=== PATIENT | female | born 1970 | race African-American/Black ===

== ENCOUNTER 2017-01-24 12:06 | Inpatient (IN) | payer OTHER ==
[2017-01-24 12:58] VITALS: BMI 28.0
--- NOTE | 2017-01-24 13:10 | HP ---
Admission [facility] - [facility] Chief Complaint: REHAB TX FOR DRUGS DEPENDENCE Allergies/Adverse Reactions: Allergies Allergy/AdvReac Type Severity Reaction Status Date / Time No Known Allergies Allergy Verified 01/24/17 16:06 History of Present Illness: 47 Y/O AA/FEMALE WITH A HX OF COCAINE AND HEROIN DEPENDENCE AND ON MMTP SEEKING REHAB TX. Exam Limitations: No Limitations - Ebola screening Have you traveled outside of the country in the last 21 days: No Have you had contact with anyone from an Ebola affected area: No Have you been sick,other than usual withdrawal symptoms: No Do you have a fever: No - Review of Systems Constitutional: Chills, Night Sweats, Changes in sleep EENT: reports: Tearing, Nose Congestion Respiratory: reports: No Symptoms reported Cardiac: reports: Lightheadedness GI: reports: Constipated, Diarrhea : reports: No Symptoms Reported Musculoskeletal: reports: Back Pain, Joint Pain, Muscle Pain Integumentary: reports: No Symptoms Reported Neuro: reports: Headache, Tremors, Dizziness Endocrine: reports: No Symptoms Reported Hematology: reports: Anemia Psychiatric: reports: Orientated x3, Anxious, Depressed Other Systems: Reviewed and Negative Patient History - Patient Medical History Hx Anemia: Yes (IRON SUPPLEMENT IN THE PAST) Hx Asthma: No Hx Chronic Obstructive Pulmonary Disease (COPD): No Hx Cardiac Disorders: No Hx Hypertension: Yes (ON MED) Hx Hypercholesterolemia: Yes (ON MED) HX Cerebrovascular Accident: Yes (IN 07/2015- SLIGHT RESIDUAL DEFICIT RIGHT SIDE) Hx Seizures: No Hx Diabetes: No Hx Gastrointestinal Disorders: No Hx Genitourinary Disorders: No Hx Sexually Transmitted Disorders: No Hx Renal Disease (ESRD): No Hx Thyroid Disease: No Hx Human Immunodeficiency Virus (HIV): No (NEGATIVE HX) Hx Hepatitis C: Yes (IN REMISSSION) Hx Depression: Yes (ON MEDS) Hx Suicide Attempt: No (DENIES) Hx Bipolar Disorder: No Hx Schizophrenia: No - Patient Surgical History Past Surgical History: No Hx Neurologic Surgery: No Hx Cataract Extraction: No Hx Cardiac Surgery: No Hx Lung Surgery: No Hx Breast Surgery: No Hx Breast Biopsy: No Hx Abdominal Surgery: No Hx Appendectomy: No Hx Cholecystectomy: No Hx Genitourinary Surgery: No Hx Section: No Hx Orthopedic Surgery: No Hx Hysterectomy: No Anesthesia Reaction: No - PPD History Previous Implant?: Yes Documented Results: Negative w/o proof Implanted On Prior [facility] Admission?: No PPD to be Administered?: Yes - Reproductive History Patient is a Female of Child Bearing Age (11 -55 yrs old): Yes Last Menstrual Period: 12/10/16 Patient : No - Smoking Cessation Smoking history: Current every day smoker Have you smoked in the past 12 months: Yes Aproximately how many cigarettes per day: 7 Hx Chewing Tobacco Use: No Initiated information on smoking cessation: Yes 'Breaking Loose' booklet given: 01/24/17 - Substance & Tx. History Hx Alcohol Use: Yes (VODKA) Hx Substance Use: Yes (COCAINE) Substance Use Type: Alcohol, Cocaine, Heroin Hx Substance Use Treatment: Yes (LAST TX AT [facility] 2016) - Substances Abused Alcohol Route: Oral Frequency: 1-2 times per week Amount used: 3 NIPS Age of first use: 24 Date of Last Use: 01/23/17 Cocaine Route: Smoking Frequency: 3-6 times per week (3X/WEEK) Amount used: $25 Age of first use: 24 Date of Last Use: 01/23/17 Heroin Route: Inhalation Frequency: Daily Amount used: 3 BAGS Age of first use: 24 Date of Last Use: 01/23/17 Family Disease History - Family Disease History Family Disease History: Other: Father (ADDICTION-), Mother (ALCOHOLISM- ) Admission Physical Exam [facility] - Vital Signs Vital Signs: Vital Signs - 24 hr 01/24/17 12:54 Temperature 97.1 F L Pulse Rate 60 Respiratory 20 Rate Blood Pressure 118/76 - Physical General Appearance: Yes: Irritable, Anxious, Other (SLIGHTLY DROWSY) HEENTM: Yes: EOMI, Normocephalic, ASHISH, Pharynx Normal Respiratory: Yes: Chest Non-Tender, Lungs Clear, Normal Breath Sounds, No Respiratory Distress Neck: Yes: No masses,lesions,Nodules, Supple, Trachea in good position Breast: Yes: Breast Exam Deferred Cardiology: Yes: Regular Rhythm, Regular Rate, S1, S2 Abdominal: Yes: Normal Bowel Sounds, Non Tender, Soft Genitourinary: Yes: Other (N/C) Back: Yes: Within Normal Limits Musculoskeletal: Yes: full range of Motion, Gait Steady Extremities: Yes: Normal Range of Motion, Non-Tender 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: 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: 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 NML intact, Fully Oriented, Alert Integumentary: Yes: Dry, Warm Lymphatic: Yes: Within Normal Limits - Diagnostic (1) Heroin dependence Current Visit: Yes Status: Chronic (2) Methadone maintenance therapy patient Current Visit: Yes Status: Chronic (3) History of anemia Current Visit: Yes Status: Suspected (4) Hypertension Current Visit: Yes Status: Chronic Qualifiers: Hypertension type: essential hypertension Qualified Code(s): I10 - Essential (primary) hypertension (5) History of CVA (cerebrovascular accident) without residual deficits Current Visit: Yes Status: Chronic Cleared for Admission [facility] - Detox or Rehab Claeared for Rehab Admission: Yes [facility] Breath Alcohol Content Breath Alcohol Content: 0 Urine Pregancy Test - Result Urine Test Results: Negative- NO Line Present Urine Drug Screen - Results Drug Screen Negative: No Urine Drug Screen Results: PAVITHRA-Cocaine, OPI-Opiates, MTD-Methadone
[2017-01-24] MEDS ORDERED: ACETAMINOPHEN 325 MG TABLET (FP) PO PRN (13:36)
[2017-01-24] MEDS ORDERED: guaiFENesin/D-METHORPHAN HB 10 ML UNIT-DOSE CUPS PO PRN (13:36)
[2017-01-24] MEDS ORDERED: LOPERAMIDE HCL 2 MG CAPSULE PO PRN (13:36)
[2017-01-24] MEDS ORDERED: MAGNESIUM CITRATE 300 ML BOTTLE PO PRN (13:36)
[2017-01-24] MEDS ORDERED: MAGNESIUM HYDROX 2400MG/30ML ORAL SUSPENSION 30 ML CUP PO PRN (13:36)
[2017-01-24] MEDS ORDERED: P-EPHED 60MG/TRIPROLIDI 2.5MG TABLET PO PRN (13:36)
[2017-01-24] MEDS ORDERED: diphenhydrAMINE HCL 50 MG CAPSULE PO PRN (13:36)
[2017-01-24] MEDS ORDERED: IBUPROFEN 400 MG TABLET (FP) PO PRN (13:36)
[2017-01-24] MEDS ORDERED: MENTHOL/PHENOL 1 EACH UD MM PRN (13:36)
[2017-01-24] MEDS ORDERED: MAG HYDROX/AL HYDROX/SIMETH 30 ML UNIT-DOSE CUP PO PRN (13:36)
--- NOTE | 2017-01-24 16:19 | PN ---
[facility]J Progress Note Note: received nurse reports that home medications had been reconciled patient has her own medications bought in with her. continue rehab
[2017-01-24] MEDS ORDERED: TUBERCULIN PPD 5 TU/0.1ML VIAL ID ONE (20:02)
[2017-01-24 20:35] LABS: MCH 31.7 pg (25.7-33.7); MCHC 33.6 g/dl (32.0-36.0); MEAN CELL VOLUME 94.3 fl (80-96); MEAN PLT VOLUME 10.3 fl (7.5-11.1); PLATELET COUNT 221 K/MM3 (134-434); RDW 13.6 % (11.6-15.6); WHITE BLOOD COUNT 6.7 K/mm3 (4.0-10.0)
[2017-01-24 20:44] LABS: ALBUMIN 4.2 g/dl (3.4-5.0); ANION GAP 6 (8-16); BILIRUBIN,TOTAL 0.4 mg/dL (0.2-1.0); CO2 30 mmol/L (21-32); CREATININE 0.7 mg/dL (0.55-1.02); GLUCOSE,RANDOM 79 mg/dL (74-106); SGOT/AST 36 U/L (15-37); SGPT/ALT 38 U/L (12-78)
[2017-01-24 20:45] LABS: ALK PHOS 123 U/L (45-117); TOT PROT 7.8 g/dl (6.4-8.2)
[2017-01-24 20:48] LABS: SICKLE CELL SCREEN NEGATIVE (NEGATIVE)
[2017-01-24 21:33] LABS: URINE APPEARANCE SL CLOUDY; URINE BILIRUBIN NEGATIVE (NEGATIVE); URINE BLOOD NEGATIVE (NEGATIVE); URINE COLOR LT. YELLOW; URINE GLUCOSE (UA) NEGATIVE (NEGATIVE); URINE KETONE NEGATIVE (NEGATIVE); URINE LEUK ESTERASE NEGATIVE (NEGATIVE); URINE NITRITE NEGATIVE (NEGATIVE); URINE PROTEIN NEGATIVE (NEGATIVE)
[2017-01-24] MEDS: THIAMINE HCL 100 MG TABLET (FP) PO SCH (22:06)
[2017-01-24] MEDS: NICOTINE 14 MG/24 HOURS TOPICAL PATCH TD SCH (22:22)
[2017-01-24] MEDS: ATORVASTATIN CALCIUM PO SCH (22:22)
[2017-01-25] MEDS ORDERED: METHADONE HCL 40 MG DISPERSABLE TABLET PO SCH (08:00)
[2017-01-25] MEDS ORDERED: METHADONE HCL 10 MG TABLET ONE (08:38)
[2017-01-25] MEDS ORDERED: METHADONE HCL 40 MG DISPERSABLE TABLET ONE (08:39)
[2017-01-25] MEDS: METHADONE 80 MG, METHADONE 20 MG PO SCH (08:41)
[2017-01-25] MEDS: NICOTINE 14 MG/24 HOURS TOPICAL PATCH TD SCH (10:22)
[2017-01-25] MEDS: PRENATAL VITAMINS W/ FOLIC ACID TABLET (FP) PO SCH (10:22)
[2017-01-25] MEDS: PATIENT'S OWN MEDICATION (NON-FORMULARY) (Amlodipine Besylate [Norvasc -] 10 MG) PO SCH (10:22)
[2017-01-25 11:38] LABS: HIV 1 & 2 AB NEGATIVE; HIV 1 AGp24 NEGATIVE
[2017-01-25] MEDS ORDERED: PNEUMOC 13-VAL CONJ-DIP CRM/PF 0.5 ML DISP.SYRIN IM ONE (12:00)
[2017-01-25] MEDS ORDERED: PNEUMOCOCCAL 23 VACCINE 0.5 ML VIAL IM ONE (12:00)
--- NOTE | 2017-01-25 12:51 | EKG ---
Test Reason : Blood Pressure : / mmHG Vent. Rate : 059 BPM Atrial Rate : 059 BPM P-R Int : 190 ms QRS Dur : 084 ms QT Int : 480 ms P-R-T Axes : 072 038 -20 degrees QTc Int : 475 ms SINUS BRADYCARDIA NONSPECIFIC ST AND T WAVE ABNORMALITY PROLONGED QT ABNORMAL ECG NO PREVIOUS ECGS AVAILABLE REPEAT EKG IF CLINICALLY INDICATED Confirmed by PARVIN HUERTA MD ([id number]) on 01/25/2017 12:51:19 PM Referred By: Confirmed By:PARVIN HUERTA MD
--- NOTE | 2017-01-25 12:53 | EKG ---
Test Reason : Blood Pressure : / mmHG Vent. Rate : 062 BPM Atrial Rate : 062 BPM P-R Int : 164 ms QRS Dur : 068 ms QT Int : 432 ms P-R-T Axes : 076 020 -26 degrees QTc Int : 438 ms NORMAL SINUS RHYTHM POSSIBLE LEFT ATRIAL ENLARGEMENT NONSPECIFIC T WAVE ABNORMALITY ABNORMAL ECG WHEN COMPARED WITH ECG OF 24-JAN-2017 20:52, NO SIGNIFICANT CHANGE WAS FOUND Confirmed by PARVIN HUERTA MD ([id number]) on 01/25/2017 12:53:37 PM Referred By: Confirmed By:PARVIN HUERTA MD
[2017-01-25] MEDS: THIAMINE HCL 100 MG TABLET (FP) PO SCH (22:01)
[2017-01-25] MEDS: ATORVASTATIN CALCIUM PO SCH (22:01)
[2017-01-26] MEDS ORDERED: METHADONE HCL 40 MG DISPERSABLE TABLET ONE (05:37)
[2017-01-26] MEDS ORDERED: METHADONE HCL 10 MG TABLET ONE (05:37)
[2017-01-26] MEDS: METHADONE 80 MG, METHADONE 20 MG PO SCH (07:05)
[2017-01-26] MEDS: PRENATAL VITAMINS W/ FOLIC ACID TABLET (FP) PO SCH (10:24)
[2017-01-26] MEDS: NICOTINE 14 MG/24 HOURS TOPICAL PATCH TD SCH (10:24)
[2017-01-26] MEDS: PATIENT'S OWN MEDICATION (NON-FORMULARY) (Amlodipine Besylate [Norvasc -] 10 MG) PO SCH (10:26)
[2017-01-26] MEDS: ATORVASTATIN CALCIUM PO SCH (21:41)
[2017-01-26] MEDS: THIAMINE HCL 100 MG TABLET (FP) PO SCH (21:42)
[2017-01-27] MEDS ORDERED: METHADONE HCL 10 MG TABLET ONE (03:27)
[2017-01-27] MEDS ORDERED: METHADONE HCL 40 MG DISPERSABLE TABLET ONE (03:28)
[2017-01-27] MEDS: METHADONE 80 MG, METHADONE 20 MG PO SCH (06:34)
[2017-01-27] MEDS: PATIENT'S OWN MEDICATION (NON-FORMULARY) (Amlodipine Besylate [Norvasc -] 10 MG) PO SCH (10:21)
[2017-01-27] MEDS: NICOTINE 14 MG/24 HOURS TOPICAL PATCH TD SCH (10:21)
[2017-01-27] MEDS: PRENATAL VITAMINS W/ FOLIC ACID TABLET (FP) PO SCH (10:21)
--- NOTE | 2017-01-27 10:57 | HP ---
Psychiatrist Admission - Data Date of interview: 01/27/17 Admission source: [facility] Identifying data: this is the first admission to [address] [place] [address] this 47 years old single AA mother of 2 (28 and 27 yo)female, resides in detention,supported by PA. Medical History: Significant for HTN,Anemia,Hyperlipidemia,Hep C. Vital Signs: Vital Signs - 24 hr 01/27/17 01/27/17 01/27/17 00:30 03:30 06:57 Temperature 98.3 F Pulse Rate 66 Respiratory 18 18 18 Rate Blood Pressure 107/70 01/27/17 09:18 Temperature 97.8 F Pulse Rate 56 L Respiratory 18 Rate Blood Pressure 102/64 Allergies/Adverse Reactions: Allergies Allergy/AdvReac Type Severity Reaction Status Date / Time No Known Allergies Allergy Verified 01/24/17 16:06 Date of last physical exam: 01/24/17 Concur with the findings of this exam: Yes - Substance Abuse/Tx History Hx Alcohol Use: Yes (reports drinking since 22 yo,1-2 drinks a week) Hx Substance Use: Yes (cocaine since 24 yo,$25 daily,heroin since 24 yo(inhaling ),3 bags daily) Substance Use Type: Alcohol, Cocaine, Heroin Hx Substance Use Treatment: Yes ([facility] in 2017) - Admission Criteria Previous failed treatment: Yes Poor recovery environment: Yes Comorbidities: Yes Lacks judgement: Yes Mental Status Exam - Mental Status Exam Alert and Oriented to: Time, Place, Person Cognitive Function: Grossly Intact Patient Appearance: Well Groomed Mood: Euthymic Affect: Appropriate, Mood Congruent Patient Behavior: Cooperative Speech Pattern: Clear Voice Loudness: Normal Thought Process: Goal Oriented Thought Disorder: Not Present Hallucinations: Denies Suicidal Ideation: Denies Homicidal Ideation: Denies Insight/Judgement: Fair Sleep: Fair Appetite: Good Muscle strength/Tone: Normal Gait/Station: Normal Psychiatric Findings - Problem List ([place] 1, 2,3) (1) Heroin dependence Current Visit: Yes Status: Chronic (2) Methadone maintenance therapy patient Current Visit: Yes Status: Chronic (3) Alcohol dependence Current Visit: Yes Status: Chronic (4) Cocaine abuse Current Visit: Yes Status: Chronic - Initial Treatment Plan Initial Treatment Plan: Will monitor progress.
[2017-01-27] MEDS: THIAMINE HCL 100 MG TABLET (FP) PO SCH (21:47)
[2017-01-27] MEDS: ATORVASTATIN CALCIUM PO SCH (21:47)
[2017-01-28] MEDS ORDERED: METHADONE HCL 10 MG TABLET ONE (03:19)
[2017-01-28] MEDS ORDERED: METHADONE HCL 40 MG DISPERSABLE TABLET ONE (03:19)
[2017-01-28] MEDS: METHADONE 80 MG, METHADONE 20 MG PO SCH (06:19)
[2017-01-28] MEDS ORDERED: PT OWN MED DRAWER 7, Y5N ONE (09:12)
[2017-01-28] MEDS: PATIENT'S OWN MEDICATION (NON-FORMULARY) (Amlodipine Besylate [Norvasc -] 10 MG) PO SCH (10:38)
[2017-01-28] MEDS: NICOTINE 14 MG/24 HOURS TOPICAL PATCH TD SCH (10:38)
[2017-01-28] MEDS: PRENATAL VITAMINS W/ FOLIC ACID TABLET (FP) PO SCH (10:38)
[2017-01-28] MEDS ORDERED: METHADONE HCL 40 MG DISPERSABLE TABLET PO SCH (11:09)
[2017-01-28] MEDS ORDERED: METHADONE 80 MG, METHADONE 10 MG PO ONE (11:30)
[2017-01-28] MEDS: ATORVASTATIN CALCIUM PO SCH (21:39)
[2017-01-28] MEDS: THIAMINE HCL 100 MG TABLET (FP) PO SCH (21:39)
[2017-01-29] MEDS ORDERED: METHADONE HCL 40 MG DISPERSABLE TABLET ONE (06:32)
[2017-01-29] MEDS ORDERED: METHADONE HCL 10 MG TABLET ONE (06:32)
[2017-01-29] MEDS: METHADONE 80 MG, METHADONE 10 MG PO SCH (06:33)
[2017-01-29] MEDS: PRENATAL VITAMINS W/ FOLIC ACID TABLET (FP) PO SCH (10:32)
[2017-01-29] MEDS: PATIENT'S OWN MEDICATION (NON-FORMULARY) (Amlodipine Besylate [Norvasc -] 10 MG) PO SCH (10:32)
[2017-01-29] MEDS: NICOTINE 14 MG/24 HOURS TOPICAL PATCH TD SCH (10:32)
[2017-01-29] MEDS: TOLNAFTATE 1% CREAM 15 GM TUBE TP SCH ×2 (12:58→21:43)
[2017-01-29] MEDS: ATORVASTATIN CALCIUM PO SCH (21:42)
[2017-01-29] MEDS: THIAMINE HCL 100 MG TABLET (FP) PO SCH (21:44)
[2017-01-30] MEDS ORDERED: METHADONE HCL 10 MG TABLET ONE (03:34)
[2017-01-30] MEDS ORDERED: METHADONE HCL 40 MG DISPERSABLE TABLET ONE (03:35)
[2017-01-30] MEDS: METHADONE 80 MG, METHADONE 10 MG PO SCH (06:31)
[2017-01-30] MEDS: PATIENT'S OWN MEDICATION (NON-FORMULARY) (Amlodipine Besylate [Norvasc -] 10 MG) PO SCH (10:08)
[2017-01-30] MEDS: PRENATAL VITAMINS W/ FOLIC ACID TABLET (FP) PO SCH (10:09)
[2017-01-30] MEDS: NICOTINE 14 MG/24 HOURS TOPICAL PATCH TD SCH (10:09)
[2017-01-30] MEDS: TOLNAFTATE 1% CREAM 15 GM TUBE TP SCH ×2 (10:10→21:31)
[2017-01-30] MEDS: ATORVASTATIN CALCIUM PO SCH (21:30)
[2017-01-30] MEDS: THIAMINE HCL 100 MG TABLET (FP) PO SCH (21:30)
[2017-01-31] MEDS ORDERED: METHADONE HCL 10 MG TABLET ONE (04:57)
[2017-01-31] MEDS ORDERED: METHADONE HCL 40 MG DISPERSABLE TABLET ONE (04:57)
[2017-01-31] MEDS: METHADONE 80 MG, METHADONE 10 MG PO SCH (06:45)
[2017-01-31] MEDS: PRENATAL VITAMINS W/ FOLIC ACID TABLET (FP) PO SCH (10:30)
[2017-01-31] MEDS: PATIENT'S OWN MEDICATION (NON-FORMULARY) (Amlodipine Besylate [Norvasc -] 10 MG) PO SCH (10:30)
[2017-01-31] MEDS: NICOTINE 14 MG/24 HOURS TOPICAL PATCH TD SCH (10:31)
[2017-01-31] MEDS: TOLNAFTATE 1% CREAM 15 GM TUBE TP SCH ×2 (10:31→21:44)
[2017-01-31] MEDS: THIAMINE HCL 100 MG TABLET (FP) PO SCH (21:44)
[2017-01-31] MEDS: ATORVASTATIN CALCIUM PO SCH (21:44)
[2017-01-31] MEDS ORDERED: PT OWN MED DRAWER 7, Y5N ONE (23:29)
[2017-02-01] MEDS ORDERED: METHADONE HCL 40 MG DISPERSABLE TABLET ONE (03:30)
[2017-02-01] MEDS ORDERED: METHADONE HCL 10 MG TABLET ONE (03:30)
[2017-02-01] MEDS: METHADONE 80 MG, METHADONE 10 MG PO SCH (06:38)
[2017-02-01] MEDS: NICOTINE 14 MG/24 HOURS TOPICAL PATCH TD SCH (09:55)
[2017-02-01] MEDS: PRENATAL VITAMINS W/ FOLIC ACID TABLET (FP) PO SCH (09:56)
[2017-02-01] MEDS: PATIENT'S OWN MEDICATION (NON-FORMULARY) (Amlodipine Besylate [Norvasc -] 10 MG) PO SCH (09:57)
[2017-02-01] MEDS: TOLNAFTATE 1% CREAM 15 GM TUBE TP SCH ×2 (09:57→21:41)
[2017-02-01] MEDS ORDERED: PT OWN MED DRAWER 7, Y5N ONE ×2 (09:57→19:43)
[2017-02-01] MEDS: ATORVASTATIN CALCIUM PO SCH (21:41)
[2017-02-01] MEDS: THIAMINE HCL 100 MG TABLET (FP) PO SCH (21:41)
[2017-02-02] MEDS ORDERED: METHADONE HCL 10 MG TABLET ONE (03:17)
[2017-02-02] MEDS ORDERED: METHADONE HCL 40 MG DISPERSABLE TABLET ONE (03:17)
[2017-02-02] MEDS: METHADONE 80 MG, METHADONE 10 MG PO SCH (06:34)
[2017-02-02] MEDS: PATIENT'S OWN MEDICATION (NON-FORMULARY) (Amlodipine Besylate [Norvasc -] 10 MG) PO SCH (10:02)
[2017-02-02] MEDS: NICOTINE 14 MG/24 HOURS TOPICAL PATCH TD SCH (10:03)
[2017-02-02] MEDS: PRENATAL VITAMINS W/ FOLIC ACID TABLET (FP) PO SCH (10:03)
[2017-02-02] MEDS: TOLNAFTATE 1% CREAM 15 GM TUBE TP SCH ×2 (10:04→21:34)
[2017-02-02] MEDS: THIAMINE HCL 100 MG TABLET (FP) PO SCH (21:34)
[2017-02-02] MEDS: ATORVASTATIN CALCIUM PO SCH (21:34)
[2017-02-02] MEDS: NICOTINE POLACRILEX 2 MG GUM BC PRN (21:36)
[2017-02-02] MEDS ORDERED: PT OWN MED DRAWER 7, Y5N ONE (21:56)
[2017-02-03] MEDS ORDERED: METHADONE HCL 10 MG TABLET ONE (03:25)
[2017-02-03] MEDS ORDERED: METHADONE HCL 40 MG DISPERSABLE TABLET ONE (03:26)
[2017-02-03] MEDS: METHADONE 80 MG, METHADONE 10 MG PO SCH (06:32)
[2017-02-03] MEDS ORDERED: PT OWN MED DRAWER 7, Y5N ONE (08:49)
[2017-02-03] MEDS: PRENATAL VITAMINS W/ FOLIC ACID TABLET (FP) PO SCH (10:34)
[2017-02-03] MEDS: NICOTINE 14 MG/24 HOURS TOPICAL PATCH TD SCH (10:34)
[2017-02-03] MEDS: TOLNAFTATE 1% CREAM 15 GM TUBE TP SCH ×2 (10:35→21:38)
[2017-02-03] MEDS: PATIENT'S OWN MEDICATION (NON-FORMULARY) (Amlodipine Besylate [Norvasc -] 10 MG) PO SCH (10:35)
[2017-02-03] MEDS: NICOTINE POLACRILEX 2 MG GUM BC PRN (10:36)
[2017-02-03] MEDS: amLODIPine BESYLATE 5 MG TABLET (FP) PO SCH (16:19)
[2017-02-03] MEDS: THIAMINE HCL 100 MG TABLET (FP) PO SCH (21:40)
[2017-02-03] MEDS: ATORVASTATIN CALCIUM PO SCH (21:41)
[2017-02-04] MEDS ORDERED: METHADONE HCL 10 MG TABLET ONE (06:14)
[2017-02-04] MEDS ORDERED: METHADONE HCL 40 MG DISPERSABLE TABLET ONE (06:14)
[2017-02-04] MEDS: METHADONE 80 MG, METHADONE 10 MG PO SCH (06:49)
[2017-02-04] MEDS ORDERED: PT OWN MED DRAWER 7, Y5N ONE (08:36)
[2017-02-04] MEDS: amLODIPine BESYLATE 5 MG TABLET (FP) PO SCH (10:41)
[2017-02-04] MEDS: PRENATAL VITAMINS W/ FOLIC ACID TABLET (FP) PO SCH (10:42)
[2017-02-04] MEDS: NICOTINE 14 MG/24 HOURS TOPICAL PATCH TD SCH (10:43)
[2017-02-04] MEDS: TOLNAFTATE 1% CREAM 15 GM TUBE TP SCH ×2 (10:44→21:38)
[2017-02-04] MEDS: THIAMINE HCL 100 MG TABLET (FP) PO SCH (21:38)
[2017-02-04] MEDS: ATORVASTATIN CALCIUM PO SCH (21:38)
[2017-02-05] MEDS ORDERED: METHADONE HCL 10 MG TABLET ONE (06:26)
[2017-02-05] MEDS ORDERED: METHADONE HCL 40 MG DISPERSABLE TABLET ONE (06:26)
[2017-02-05] MEDS: METHADONE 80 MG, METHADONE 10 MG PO SCH (06:33)
[2017-02-05] MEDS: NICOTINE 14 MG/24 HOURS TOPICAL PATCH TD SCH (10:11)
[2017-02-05] MEDS: amLODIPine BESYLATE 5 MG TABLET (FP) PO SCH (10:11)
[2017-02-05] MEDS: NICOTINE POLACRILEX 2 MG GUM BC PRN ×2 (10:11→21:41)
[2017-02-05] MEDS: PRENATAL VITAMINS W/ FOLIC ACID TABLET (FP) PO SCH (10:11)
[2017-02-05] MEDS: TOLNAFTATE 1% CREAM 15 GM TUBE TP SCH ×2 (10:11→21:40)
[2017-02-05] MEDS: ATORVASTATIN CALCIUM PO SCH (21:40)
[2017-02-05] MEDS: THIAMINE HCL 100 MG TABLET (FP) PO SCH (21:40)
[2017-02-06] MEDS ORDERED: METHADONE HCL 10 MG TABLET ONE (03:24)
[2017-02-06] MEDS ORDERED: METHADONE HCL 40 MG DISPERSABLE TABLET ONE (03:24)
[2017-02-06] MEDS: METHADONE 80 MG, METHADONE 10 MG PO SCH (06:30)
[2017-02-06] MEDS ORDERED: PT OWN MED DRAWER 7, Y5N ONE (08:40)
[2017-02-06] MEDS: PRENATAL VITAMINS W/ FOLIC ACID TABLET (FP) PO SCH (10:56)
[2017-02-06] MEDS: TOLNAFTATE 1% CREAM 15 GM TUBE TP SCH ×2 (10:56→21:40)
[2017-02-06] MEDS: NICOTINE 14 MG/24 HOURS TOPICAL PATCH TD SCH (10:56)
[2017-02-06] MEDS: amLODIPine BESYLATE 5 MG TABLET (FP) PO SCH (10:56)
[2017-02-06] MEDS: NICOTINE POLACRILEX 2 MG GUM BC PRN (10:57)
[2017-02-06] MEDS: THIAMINE HCL 100 MG TABLET (FP) PO SCH (21:40)
[2017-02-06] MEDS: ATORVASTATIN CALCIUM PO SCH (21:40)
[2017-02-07] MEDS ORDERED: METHADONE HCL 10 MG TABLET ONE (03:26)
[2017-02-07] MEDS ORDERED: METHADONE HCL 40 MG DISPERSABLE TABLET ONE (03:26)
[2017-02-07] MEDS: METHADONE 80 MG, METHADONE 10 MG PO SCH (06:20)
[2017-02-07] MEDS ORDERED: PT OWN MED DRAWER 7, Y5N ONE (09:09)
[2017-02-07] MEDS: amLODIPine BESYLATE 5 MG TABLET (FP) PO SCH (10:42)
[2017-02-07] MEDS: NICOTINE 14 MG/24 HOURS TOPICAL PATCH TD SCH (10:42)
[2017-02-07] MEDS: PRENATAL VITAMINS W/ FOLIC ACID TABLET (FP) PO SCH (10:42)
[2017-02-07] MEDS: TOLNAFTATE 1% CREAM 15 GM TUBE TP SCH ×2 (10:44→22:15)
[2017-02-07] MEDS: NICOTINE POLACRILEX 2 MG GUM BC PRN ×2 (10:44→22:16)
[2017-02-07] MEDS: ATORVASTATIN CALCIUM PO SCH (22:15)
[2017-02-07] MEDS: THIAMINE HCL 100 MG TABLET (FP) PO SCH (22:15)
[2017-02-08] MEDS ORDERED: METHADONE HCL 40 MG DISPERSABLE TABLET ONE (06:09)
[2017-02-08] MEDS ORDERED: METHADONE HCL 10 MG TABLET ONE (06:09)
[2017-02-08] MEDS: METHADONE 80 MG, METHADONE 10 MG PO SCH (06:52)
[2017-02-08] MEDS ORDERED: PT OWN MED DRAWER 7, Y5N ONE (09:28)
[2017-02-08] MEDS: NICOTINE 14 MG/24 HOURS TOPICAL PATCH TD SCH (10:19)
[2017-02-08] MEDS: amLODIPine BESYLATE 5 MG TABLET (FP) PO SCH (10:19)
[2017-02-08] MEDS: PRENATAL VITAMINS W/ FOLIC ACID TABLET (FP) PO SCH (10:19)
[2017-02-08] MEDS: TOLNAFTATE 1% CREAM 15 GM TUBE TP SCH ×2 (10:20→21:40)
[2017-02-08] MEDS: THIAMINE HCL 100 MG TABLET (FP) PO SCH (21:40)
[2017-02-08] MEDS: NICOTINE POLACRILEX 2 MG GUM BC PRN (21:41)
[2017-02-08] MEDS: ATORVASTATIN CALCIUM PO SCH (21:41)
[2017-02-09] MEDS ORDERED: METHADONE HCL 40 MG DISPERSABLE TABLET ONE (06:02)
[2017-02-09] MEDS ORDERED: METHADONE HCL 10 MG TABLET ONE (06:02)
[2017-02-09] MEDS: METHADONE 80 MG, METHADONE 10 MG PO SCH (06:45)
[2017-02-09] MEDS ORDERED: PT OWN MED DRAWER 7, Y5N ONE (08:57)
[2017-02-09] MEDS: amLODIPine BESYLATE 5 MG TABLET (FP) PO SCH (10:05)
[2017-02-09] MEDS: PRENATAL VITAMINS W/ FOLIC ACID TABLET (FP) PO SCH (10:05)
[2017-02-09] MEDS: NICOTINE 14 MG/24 HOURS TOPICAL PATCH TD SCH (10:06)
[2017-02-09] MEDS: TOLNAFTATE 1% CREAM 15 GM TUBE TP SCH ×2 (10:06→21:53)
[2017-02-09] MEDS: NICOTINE POLACRILEX 2 MG GUM BC PRN (10:07)
[2017-02-09] MEDS: ATORVASTATIN CALCIUM PO SCH (21:52)
[2017-02-09] MEDS: THIAMINE HCL 100 MG TABLET (FP) PO SCH (21:52)
[2017-02-10] MEDS ORDERED: METHADONE HCL 10 MG TABLET ONE (03:37)
[2017-02-10] MEDS ORDERED: METHADONE HCL 40 MG DISPERSABLE TABLET ONE (03:37)
[2017-02-10] MEDS: METHADONE 80 MG, METHADONE 10 MG PO SCH (06:14)
[2017-02-10 07:44] VITALS: TEMP 97.5
--- NOTE | 2017-02-10 09:24 | PN ---
Psychiatric Progress Note Vital Signs: Vital Signs Period Temp Pulse Resp BP Sys/Renteria Pulse Ox Last 24 Hr 97.5 F 57-69 16-18 108-113/70-75 Date of Session: 02/10/17 Chief Complaint:: Discharge visit HPI: Opioid,alcohol and cocaine dependence . ROS: Significant for HTN,H/O CVA. Current Medications: Active Medications Generic Name Dose Route Start Last Admin Trade Name Freq PRN Reason Stop Dose Admin Acetaminophen 650 mg 01/24/17 13:36 Tylenol - PO Q4H PRN PAIN Al Hydroxide/Mg Hydroxide 30 ml 01/24/17 13:36 Mylanta Oral Suspension - PO Q6H PRN DYSPEPSIA Amlodipine Besylate 5 mg 02/03/17 14:45 02/09/17 10:05 Norvasc - PO 5 mg DAILY GUMARO Administration Eucalyptus/Menthol/Phenol/Sorbitol 1 each 01/24/17 13:36 Cepastat Lozenge - MM Q4H PRN SORE THROAT Ibuprofen 400 mg 01/24/17 13:36 01/31/17 15:58 Motrin - PO 400 mg Q6H PRN Administration SEVERE PAIN Loperamide HCl 4 mg 01/24/17 13:36 Imodium - PO Q6H PRN DIARRHEA Magnesium Citrate 300 ml 01/24/17 13:36 Citroma - PO Q48H PRN CONSTIPATION Magnesium Hydroxide 30 ml 01/24/17 13:36 Milk Of Magnesia - PO DAILY PRN CONSTIPATION Methadone HCl 80 mg/ Methadone 90 mg 02/05/17 06:00 02/10/17 06:14 HCl 10 mg PO 90 mg DAILY@0600 GUMARO Administration Nicotine 14 mg 01/24/17 13:45 02/09/17 10:06 Nicoderm Patch - TD 14 mg DAILY GUMARO Administration Nicotine Polacrilex 2 mg 01/24/17 13:36 02/09/17 10:07 Nicorette Gum - BC 2 mg Q2H PRN Administration NICOTINE REPLACEMENT RX Non-Formulary Medication 80 mg 01/24/17 22:00 02/09/17 21:52 Atorvastatin Calcium [Atorvastatin Calcium] PO 80 mg HS GUMARO Administration Multivit/Folic Acid/Iron 1 tab 01/25/17 10:00 02/09/17 10:05 Vitamins ([facility]) - PO 1 tab DAILY GUMARO Administration Pseudoephedrine/Triprolidine 1 combo 01/24/17 13:36 Actifed - PO TID PRN NASAL CONGESTION Thiamine HCl 100 mg 01/24/17 22:00 02/09/17 21:52 Vitamin B1 - PO 100 mg HS GUMARO Administration Tolnaftate 1 applic 01/29/17 11:15 02/09/17 21:53 Tinactin 1% Cream - TP Not Given BID GUMARO Current Side Effect: No Lab tests ordered: No Lab tests reviewed: Yes Provider note:: Patient completed this program today.She has met her treatment goals and will continue to address her issues on outpatient basis .Patient identifies areas of difficulties and ways ,coping skills which contrubutes to relapse.Supportive therapy provided including coping skills,support utilization to maintain recovery. Patient is stable for discharge today. Total face to face time:: 30 Mental Status Exam - Mental Status Exam Alert and Oriented to: Time, Place, Person Cognitive Function: Grossly Intact Patient Appearance: Well Groomed Mood: Euthymic Affect: Mood Congruent Patient Behavior: Appropriate, Cooperative Speech Pattern: Clear Voice Loudness: Normal Thought Process: Goal Oriented Thought Disorder: Not Present Hallucinations: Denies Suicidal Ideation: Denies Homicidal Ideation: Denies Insight/Judgement: Fair Sleep: Fair Appetite: Fair Muscle strength/Tone: Normal Gait/Station: Normal
[2017-02-10] MEDS: amLODIPine BESYLATE 5 MG TABLET (FP) PO SCH (09:47)
[2017-02-10] MEDS: PRENATAL VITAMINS W/ FOLIC ACID TABLET (FP) PO SCH (09:47)
[2017-02-10] MEDS: NICOTINE 14 MG/24 HOURS TOPICAL PATCH TD SCH (09:48)
[2017-02-10] MEDS: TOLNAFTATE 1% CREAM 15 GM TUBE TP SCH (09:48)
[2017-02-10 11:06] VITALS: BP 102/64; PULSE 84
== END 2017-02-10 09:57 | disposition home or self-care (01) | DRG 772 ==
LOC: YASAS 12:06 → Y3E 15:55
PROVIDERS: ADMIT Psychiatry & Neurology Psychiatry; ATTEND Psychiatry & Neurology Psychiatry
PROC: HZ42ZZZ Group Counseling for Substance Abuse Treatment, Cognitive-Behavioral (ICD-10-PCS; principal; 2017-01-24)
DX: F11.20 Opioid dependence, uncomplicated (principal); F10.230 Alcohol dependence with withdrawal, uncomplicated; F14.20 Cocaine dependence, uncomplicated; F32.9 Major depressive disorder, single episode, unspecified; B18.2 Chronic viral hepatitis C; I10 Essential (primary) hypertension; D50.8 Other iron deficiency anemias; I69.851 Hemiplegia and hemiparesis following other cerebrovascular disease affecting right dominant side
CPT/HCPCS: 36415; 80053; 81003; 85027; 85660; 86593; 87389; 93005; 93010